=== PATIENT | female | born 1990 | race Caucasian/White ===

== ENCOUNTER 2024-08-20 09:35 | Emergency (ER) | payer OTHER ==
[2024-08-20 10:00] VITALS: BP 127/79; PULSE 75; RESP 18; TEMP 98; BMI 28.3
[2024-08-20] MEDS ORDERED: ALBUTEROL SO4 2.5/IPRATROPIUM 0.5 INH SOL 3 ML VIAL.NEB. NEB ONE (10:17)
[2024-08-20] MEDS ORDERED: ACETAMINOPHEN 325 MG TABLET (FP) ONE (10:17)
[2024-08-20] MEDS: ACETAMINOPHEN 325 MG TABLET (FP) PO ONE (10:26)
[2024-08-20] MEDS: ALBUTEROL SO4 2.5/IPRATROPIUM 0.5 INH SOL 3 ML VIAL.NEB. NEB ONE (10:26)
== END 2024-08-20 11:20 | disposition home or self-care (01) ==
LOC: FER 09:35
PROC: 3E0F7GC Introduction of Other Therapeutic Substance into Respiratory Tract, Via Natural or Artificial Opening (ICD-10-PCS; principal; 2024-08-20)
DX: R05.9 Cough, unspecified (principal); R07.9 Chest pain, unspecified; Z20.822 Contact with and (suspected) exposure to COVID-19
CPT/HCPCS: 0241U-QW; 71046-TC-FY; 94640; 99284-25